=== PATIENT | male | born 1985 | race Caucasian/White ===

== ENCOUNTER 2018-12-19 10:24 | Emergency (ER) | payer MEDICAID, OTHER ==
[2018-12-19] MEDS ORDERED: IBUPROFEN 800 MG TABLET PO ONE (11:10)
[2018-12-19] MEDS ORDERED: DIPH/PERTUSS(ACELL)/TETANUS VAC/PF 0.5 ML SYR (>=10YO) IM ONE (11:10)
--- NOTE | 2018-12-19 11:15 | ER Document Report ---
HPI - HPI Time Seen by Provider: 12/19/18 11:06 Pain Level: 4 Notes: Patient is a 33-year-old male with no significant past medical history who presents complaining of right hand pain primarily to his fourth digit status post injury yesterday. Patient states that he was working on a bulldozer when he fell off but landed on his hand on the track. He did not hit his head or lose conscious. He denies drug allergies. Patient has noticed swelling and bruising to the fourth digit. Denies any headache, fever, head injury, neck pain, changes in vision/speech/mentation/hearing, URI, sore throat, chest pain, palpitations, syncope, cough, shortness of breath, wheeze, dyspnea, abdominal pain, nausea/vomiting/diarrhea, urinary retention, dysuria, hematuria, loss of control of bowel or bladder, numbness/tingling, back pain, muscle paralysis, or rash. - ROS Systems Reviewed and Negative: Yes All other systems reviewed and negative - MUSCULOSKELETAL Musculoskeletal: REPORTS: Extremity pain - right ring finger Past Medical History - Social History Smoking Status: Current Every Day Smoker Frequency of alcohol use: Occasional Drug Abuse: None Family History: Reviewed & Not Pertinent Patient has suicidal ideation: No Patient has homicidal ideation: No Renal/ Medical History: Denies: Hx Peritoneal Dialysis Psychiatric Medical History: Reports: Hx Depression Vertical Provider Document - CONSTITUTIONAL Agree With Documented VS: Yes Notes: PHYSICAL EXAMINATION: GENERAL: Well-appearing, well-nourished and in no acute distress. HEAD: Atraumatic, normocephalic. NECK: Normal range of motion, supple without lymphadenopathy. No midline tenderness. LUNGS: Breath sounds clear to auscultation bilaterally and equal. No wheezes rales or rhonchi. HEART: Regular rate and rhythm without murmurs, rubs, gallops. Musculoskeletal: Rt hand/wrist: + swelling noted to the 2-4th digits. The 4th is the worst with significant swelling, ecchymosis, and mild deformity. + tenderness from the MCP-->distal of the 4th digit. + mild tenderness prox digits of the 2nd, 3rd. FROM to flexion of the digits otherwise. N/V intact distal. FROM to passive/active at the wrist. Strength 4+/5 due to pain at the digits. No scaphoid tenderness. + abrasion to the anterior 4th digit proximally. Does not appear to be a laceration or have any deep involvement. Extremities: No cyanosis, clubbing, or edema b/l. Peripheral pulses 2+. Capillary refill less than 3 seconds. NEUROLOGICAL: Normal speech, normal gait. Normal sensory, motor exams otherwise unremarkable aside from what is noted above PSYCH: Normal mood, normal affect. SKIN: see above. No rash - INFECTION CONTROL TRAVEL OUTSIDE OF THE [place] IN LAST 30 DAYS: No Course - Re-evaluation Re-evalutation: 12/19/18 12:50 Patient is an afebrile, well-hydrated, 33-year-old female who presents to the ED with a dislocation to the PIP joint of the right fourth finger. Vitals are acceptable without any significant tachycardia, tachypnea, or hypoxia. PE is otherwise unremarkable for any neurovascular compromise, open fracture, septic joint. See XR result. Joint was successfully reduced after digital block performed without any complications. Patient tolerated procedure well. Splint applied today. Patient was given Motrin. Patient is nontoxic-appearing. No other labs or imaging warranted at this time based on H&P. Conservative measures otherwise for symptoms. Recheck with your PCM in 3-5 days. Call orthopedics to schedule an appointment for further evaluation and management. Return to the ED with any worsening/concerning symptoms otherwise as reviewed in discharge. Patient is in agreement. - Vital Signs Vital signs: Temp Pulse Resp BP Pulse Ox 98.2 F 77 18 134/85 H 97 12/19/18 10:26 12/19/18 10:26 12/19/18 10:26 12/19/18 10:26 12/19/18 10:26 Procedures - Joint Reduction/Fracture Care Left Finger 4th digit Time completed: 12:40 Consent obtained: Yes Conscious sedation: No Pre-procedure NV exam: Yes - normal Fracture: Other - none Post-procedure NV exam: Yes - normal Post-reduction x-ray: Joint reduced Reduction attempts: 1 Complications: No Discharge - Discharge Clinical Impression: Dislocated finger Qualifiers: Encounter type: initial encounter Qualified Code(s): S63.259A - Unspecified dislocation of unspecified finger, initial encounter Condition: Stable Disposition: HOME, SELF-CARE Additional Instructions: Rest, Ice, Compression, Elevation Use splint as directed Tylenol/ibuprofen as needed F/u with your PCP in 3-5 days for a recheck Call orthopedics to schedule an appointment for further evaluation and man agement Return to the ED with any worsening symptoms and/or development of fever, headache, chest pain, palpitations, syncope, shortness of breath, trouble breathing, abdominal pain, n/v/d, muscle weakness/paralysis, numbness/tingling, swelling, redness, or other worsening symptoms that are concerning to you. Prescriptions: Amox Tr/Potassium Clavulanate [Augmentin 875-125 Tablet] 1 tab PO BID 10 Days #20 tablet Meloxicam [Mobic 7.5 Mg Tablet] 7.5 mg PO BID PRN #14 tablet PRN Reason: Forms: Elevated Blood Pressure, Smoking Cessation Education Referrals: [facility] ([facility]) [Provider Group] - Follow up in 3-5 days
[2018-12-19] MEDS ORDERED: LIDOCAINE 1% INJ-PF (10 MG/ML) 30 ML SDV INJ ONE (11:39)
--- NOTE | 2018-12-19 11:48 | RADIOLOGY REPORT (SQ) ---
EXAM DESCRIPTION: HAND RIGHT 3 VIEWS COMPLETED DATE/TIME: 12/19/2018 11:34 am REASON FOR STUDY: hand pain s/p injury, worst is 4th digit COMPARISON: None. EXAM PARAMETERS: NUMBER OF VIEWS: Three views. TECHNIQUE: AP, lateral and oblique radiographic images acquired of the right hand. LIMITATIONS: None. FINDINGS: MINERALIZATION: Normal. BONES: Dorsal dislocation of the proximal 4th interphalangeal joint. No fracture identified. JOINTS: See above. SOFT TISSUES: No foreign body. OTHER: No other significant finding. IMPRESSION: Dislocation proximal 4th interphalangeal joint. TECHNICAL DOCUMENTATION: JOB ID: [id number] [employer]- All Rights Reserved Reading location - IP/workstation name: [email or web address]
[2018-12-19 13:05] VITALS: BP 128/76
--- NOTE | 2018-12-19 13:17 | RADIOLOGY REPORT (SQ) ---
EXAM DESCRIPTION: FINGER RIGHT COMPLETED DATE/TIME: 12/19/2018 12:59 pm REASON FOR STUDY: post reduction XR 4th PIP joint COMPARISON: 12/19/2018. NUMBER OF VIEWS: Three views. TECHNIQUE: AP, lateral, and oblique images acquired of the right 4th finger. LIMITATIONS: None. FINDINGS: MINERALIZATION: Normal. BONES: Interval reduction of dislocation of right 4th PIP joint. Soft tissue swelling seen. SOFT TISSUES: No soft tissue swelling. No foreign body. OTHER: No other significant finding. IMPRESSION: Successful reduction of right 4th PIP joint dislocation. TECHNICAL DOCUMENTATION: JOB ID: [id number] [employer]- All Rights Reserved Reading location - IP/workstation name: [email or web address]
== END 2018-12-19 13:05 | disposition home or self-care (01) ==
LOC: ER 10:24
PROC: 0RSWXZZ Reposition Right Finger Phalangeal Joint, External Approach (ICD-10-PCS; principal; 2018-12-19)
DX: S63.259A Unspecified dislocation of unspecified finger, initial encounter (principal); M79.641 Pain in right hand; V87.8XXA Person injured in other specified noncollision transport accidents involving motor vehicle (traffic), initial encounter; F17.200 Nicotine dependence, unspecified, uncomplicated
CPT/HCPCS: 90471; 90715; 99283

== ENCOUNTER 2019-01-30 20:27 | Emergency (ER) | payer SELFPAY ==
[2019-01-30 20:32] VITALS: BP 122/71
--- NOTE | 2019-01-30 20:46 | ER Document Report ---
ED Medical Screen (RME) - General Chief Complaint: STD Exposure Stated Complaint: STD CHECK Time Seen by Provider: 01/30/19 20:43 Mode of Arrival: Ambulatory Information source: Patient Notes: Patient presents emergency department because his girlfriend is positive for trichomonas. He wants to be tested. He denies testicular pain. Denies penile discharge. Denies pain with void. Reports he does not have any symptoms at all. Past medical history of STDs I have greeted and performed a rapid initial assessment of this patient. A comprehensive ED assessment and evaluation of the patient, analysis of test results and completion of the medical decision making process will be conducted by additional ED providers. Dictation of this chart was performed using voice recognition software; therefore, there may be some unintended grammatical errors. TRAVEL OUTSIDE OF THE [place] IN LAST 30 DAYS: No - Related Data Allergies/Adverse Reactions: trazodone Allergy (Verified 01/30/19 20:44) Past Medical History Renal/ Medical History: Denies: Hx Peritoneal Dialysis Psychiatric Medical History: Reports: Hx Depression Physical Exam - Vital signs Vitals: Temp Pulse Resp BP Pulse Ox 98.6 F 84 18 122/71 96 01/30/19 20:31 01/30/19 20:31 01/30/19 20:31 01/30/19 20:31 01/30/19 20:31 Course - Vital Signs Vital signs: Temp Pulse Resp BP Pulse Ox 98.6 F 84 18 122/71 96 01/30/19 20:31 01/30/19 20:31 01/30/19 20:31 01/30/19 20:31 01/30/19 20:31
[2019-01-30 21:10] LABS: RBCS (WET MOUNT) NO RBCS SEEN; T.VAGINALIS (WET MOUNT) NO TRICHOMONAS SEEN; WBCS (WET MOUNT) NO WBCS SEEN; YEAST (WET MOUNT) NO YEAST SEEN
[2019-01-30 21:15] LABS: APPEARANCE,URINE CLEAR; BILIRUBIN,URINE NEGATIVE (NEGATIVE); COLOR,URINE YELLOW; GLUCOSE, URINE NEGATIVE (NEGATIVE); KETONES,URINE NEGATIVE (NEGATIVE); LEUKOCYTE ESTERASE,URINE NEGATIVE (NEGATIVE); NITRITE,URINE NEGATIVE (NEGATIVE); PROTEIN,URINE NEGATIVE (NEGATIVE); URINE SPECIFIC GRAVITY 1.022
[2019-01-30 22:30] LABS: CHLAM PCR NOT DETECTED (NOT DETECT)
== END 2019-01-30 21:00 | disposition left against medical advice (07) ==
LOC: ER 20:27
DX: Z20.2 Contact with and (suspected) exposure to infections with a predominantly sexual mode of transmission (principal)
CPT/HCPCS: 81001; 87210; 87491; 87591; 99281